=== PATIENT | female | born 1970 | race Caucasian/White ===

== ENCOUNTER 2018-11-07 17:48 | Inpatient (IN) | payer MEDICARE ==
[~2018-11-07] VITALS: Ht 172.7 cm; Wt 75.0 kg
[~2018-11-07 17:48] MED LIST: ALPR.25 PO; AMOCLA875 PO; CITA20; FLUO20 PO; HYDACE5 PO; LITH450ER PO; METPRE4DP PO; NITR100CA PO; OLAN5; Prozac20 MG PO; SYMBYAX; Veetids 500500 MG PO; Zyprexa10 MG PO; [UNRECOGNIZED DRUG - OTHER]; [UNRECOGNIZED DRUG - REMARK]
[2018-11-07 18:17] LABS: Source, Urine Catheter
[2018-11-07 18:22] LABS: BASOPHILS ABSOLUTE AUTO 0.11 K/mm3 (0.00-0.23); BASOPHILS PERCENT AUTO 1 % (0-2); EOSINOPHILS ABSOLUTE AUTO 0.31 K/mm3 (0.00-0.68); EOSINOPHILS PERCENT AUTO 3 % (0-6); Hematocrit 44.7 % (33.0-51.0); Hemoglobin 14.8 g/dL (11.5-16.0); IMMATURE GRAN ABSOLUTE AUTO 0.03 K/mm3 (0.00-0.10); IMMATURE GRAN PERCENT AUTO 0 % (0-1); LYMPHOCYTES ABSOLUTE AUTO 4.53 K/mm3 (0.84-5.20); LYMPHOCYTES PERCENT AUTO 42 % (21-46); MONOCYTES ABSOLUTE AUTO 0.54 K/mm3 (0.16-1.47); MONOCYTES PERCENT AUTO 5 % (4-13); Mean Corpuscular HGB 29.2 pg (26.0-34.0); Mean Corpuscular HGB Conc 33.1 g/dL (31.5-36.5); Mean Corpuscular Volume 88 fL (80-100); Mean Platelet Volume 8.9 fL (9.1-12.4); NEUTROPHILS ABSOLUTE AUTO 5.16 K/mm3 (1.96-9.15); NEUTROPHILS PERCENT AUTO 48 % (41-73); Platelet Count 373 K/mm3 (150-400); RDW Coefficient Variation 13.8 % (11.7-14.2); RDW Standard Deviation 43.8 fL (35.1-46.3); Red Blood Cell Count 5.07 M/mm3 (3.80-5.20); White Blood Cell Count 10.68 K/mm3 (4.00-11.30)
[2018-11-07 18:33] LABS: Appearance, Urine Clear (Clear); Bilirubin, Urine Neg (Neg); Blood, Urine Neg (Neg); Color, Urine Yellow (P-Yellow); Glucose Qualitative, Urine Neg (Neg); Ketones, Urine Neg (Neg); Leukocyte Esterase, Urine Neg (Neg); Nitrite, Urine Neg (Neg); Protein, Urine Neg (Neg); Urobilinogen, Urine NORM (Normal)
[2018-11-07 19:00] LABS: U Amphetamine Screen Not Detected; U Barbituate Screen Not Detected; U Benzodiazapine Screen Not Detected; U Buprenorphine Screen Not Detected; U Cannabinoids Screen DETECTED; U Cocaine Screen Not Detected; U Methadone Screen Not Detected; U Methamphetamine Screen Not Detected; U Opiates Screen Not Detected; U Oxycodone Screen Not Detected; U Phencyclidine Screen Not Detected; U Propoxyphene Screen Not Detected
[2018-11-07 19:01] LABS: Alanine Aminotransfer (ALT/SGP 20 U/L (12-78); Alk Phos 109 U/L (50-136); Anion Gap 13 mmol/L (6-16); Aspartate Aminotrans (AST/SGOT 15 U/L (12-37); Bilirubin, Total 0.3 mg/dL (0.1-1.0); Blood Urea Nitrogen 6 mg/dL (8-24); Bun/Creatinine Ratio 8.4 (12.0-20.0); CO2, Blood 18 mmol/L (21-32); Calcium, Blood 8.5 mg/dL (8.5-10.1); Chloride, Blood 114 mmol/L (98-108); Creatinine, Blood 0.71 mg/dL (0.40-1.00); Ethanol (Alcohol), Blood, Med 253 mg/dL; Free Thyroxine 1.11 ng/dL (0.70-1.60); Globulin, Blood 4.2 g/dL (2.2-4.0); Glomerular Filtration Rate >60 (60-); Glucose, Blood 121 mg/dL (70-99); Potassium, Blood 3.3 mmol/L (3.5-5.5); Salicylate 2.6 mg/dL (2.8-20.0); Sodium, Blood 145 mmol/L (136-145); Total Protein, Blood 8.2 g/dL (6.4-8.2)
[2018-11-07] MEDS ORDERED: ESCI10 PO (19:10)
[2018-11-07 19:21] LABS: Acetaminophen, Random <2.0 ug/mL (10.0-30.0)
[2018-11-08 04:44] LABS: Alanine Aminotransfer (ALT/SGP 22 U/L (12-78); Albumin, Blood 3.2 g/dL (3.4-5.0); Albumin/Globulin Ratio 0.9 (0.8-1.8); Alk Phos 86 U/L (50-136); Anion Gap 8 mmol/L (6-16); Aspartate Aminotrans (AST/SGOT 21 U/L (12-37); Bilirubin, Total 0.6 mg/dL (0.1-1.0); Blood Urea Nitrogen 4 mg/dL (8-24); Bun/Creatinine Ratio 5.8 (12.0-20.0); CO2, Blood 22 mmol/L (21-32); Calcium, Blood 7.3 mg/dL (8.5-10.1); Chloride, Blood 118 mmol/L (98-108); Creatinine, Blood 0.69 mg/dL (0.40-1.00); Globulin, Blood 3.5 g/dL (2.2-4.0); Glomerular Filtration Rate >60 (60-); Glucose, Blood 76 mg/dL (70-99); Potassium, Blood 3.9 mmol/L (3.5-5.5); Sodium, Blood 148 mmol/L (136-145); Total Protein, Blood 6.7 g/dL (6.4-8.2)
[2018-11-09 08:28] LABS: Albumin, Blood 3.1 g/dL (3.4-5.0); Anion Gap 7 mmol/L (6-16); Blood Urea Nitrogen 7 mg/dL (8-24); CO2, Blood 23 mmol/L (21-32); Calcium, Blood 8.2 mg/dL (8.5-10.1); Chloride, Blood 111 mmol/L (98-108); Glomerular Filtration Rate >60 (60-); Glucose, Blood 79 mg/dL (70-99); Magnesium, Blood 2.1 mg/dL (1.6-2.4); Phosphorus, Blood 2.3 mg/dL (2.5-4.9); Potassium, Blood 3.7 mmol/L (3.5-5.5); Sodium, Blood 141 mmol/L (136-145)
[2018-11-10 05:07] LABS: Albumin, Blood 3.2 g/dL (3.4-5.0); Anion Gap 9 mmol/L (6-16); Blood Urea Nitrogen 11 mg/dL (8-24); Bun/Creatinine Ratio 13.9 (12.0-20.0); CO2, Blood 22 mmol/L (21-32); Calcium, Blood 8.5 mg/dL (8.5-10.1); Chloride, Blood 110 mmol/L (98-108); Creatinine, Blood 0.79 mg/dL (0.40-1.00); Glomerular Filtration Rate >60 (60-); Glucose, Blood 90 mg/dL (70-99); Phosphorus, Blood 3.2 mg/dL (2.5-4.9); Potassium, Blood 3.7 mmol/L (3.5-5.5); Sodium, Blood 141 mmol/L (136-145)
== END 2018-11-11 15:15 | DRG 917 ==
LOC: ER 17:48 → ICUE 19:28 → ICUW 19:28 → ICUE 19:54
PROVIDERS: Emergency Medicine; Hospitalist; Internal Medicine
DX: T43.592A Poisoning by other antipsychotics and neuroleptics, intentional self-harm, initial encounter (principal); G92 Toxic encephalopathy; E87.1 Hypo-osmolality and hyponatremia; T51.92XA Toxic effect of unspecified alcohol, intentional self-harm, initial encounter; F31.9 Bipolar disorder, unspecified; T43.222A Poisoning by selective serotonin reuptake inhibitors, intentional self-harm, initial encounter; Y92.009 Unspecified place in unspecified non-institutional (private) residence as the place of occurrence of the external cause; Z87.440 Personal history of urinary (tract) infections; F17.210 Nicotine dependence, cigarettes, uncomplicated; F12.10 Cannabis abuse, uncomplicated; Z63.4 Disappearance and death of family member; R41.0 Disorientation, unspecified; R45.1 Restlessness and agitation; E87.6 Hypokalemia; E83.39 Other disorders of phosphorus metabolism
CPT/HCPCS: 36415; 71045; 80053; 80069; 81003; 81025; 83735; 84439; 84443; 85025; 93005; 93010; 96361; 96374; 96375; 99285-25; G0480; J1650; J2060; J2310; J2405; J3411; J3475; J7030; J7042; J7060

== ENCOUNTER 2021-01-23 23:07 | Inpatient (IN) | payer MEDICARE ==
[~2021-01-23] VITALS: Ht 162.6 cm; Wt 69.3 kg
[~2021-01-23 23:07] MED LIST changes: +ESCI10 PO
[2021-01-23 23:48] LABS: BASOPHILS ABSOLUTE AUTO 0.12 K/mm3 (0.00-0.23); BASOPHILS PERCENT AUTO 2 % (0-2); EOSINOPHILS ABSOLUTE AUTO 0.27 K/mm3 (0.00-0.68); EOSINOPHILS PERCENT AUTO 3 % (0-6); Hematocrit 41.1 % (33.0-51.0); IMMATURE GRAN ABSOLUTE AUTO 0.04 K/mm3 (0.00-0.10); IMMATURE GRAN PERCENT AUTO 1 % (0-1); LYMPHOCYTES ABSOLUTE AUTO 3.03 K/mm3 (0.84-5.20); LYMPHOCYTES PERCENT AUTO 37 % (21-46); MONOCYTES PERCENT AUTO 7 % (4-13); Mean Corpuscular HGB 30.2 pg (26.0-34.0); Mean Corpuscular HGB Conc 34.1 g/dL (31.5-36.5); Mean Corpuscular Volume 89 fL (80-100); Mean Platelet Volume 10.1 fL (9.1-12.4); NEUTROPHILS ABSOLUTE AUTO 4.18 K/mm3 (1.96-9.15); NEUTROPHILS PERCENT AUTO 51 % (41-73); Platelet Count 319 K/mm3 (150-400); RDW Coefficient Variation 14.5 % (11.7-14.2); RDW Standard Deviation 46.2 fL (35.1-46.3); Red Blood Cell Count 4.63 M/mm3 (3.80-5.20); White Blood Cell Count 8.24 K/mm3 (4.00-11.30)
[2021-01-24 00:06] LABS: Source, Urine Catheter
[2021-01-24 00:16] LABS: PO2 Arterial 66.5 mmHg (80-100); pH Blood Arterial 7.35 (7.35-7.45)
[2021-01-24 00:16] LABS: Bilirubin, Urine Neg (Neg); Blood, Urine 3+ (Neg); Glucose Qualitative, Urine Neg (Neg); Ketones, Urine 2+ (Neg); Leukocyte Esterase, Urine Neg (Neg); Nitrite, Urine Neg (Neg); Protein, Urine 2+ (Neg); Specific Gravity, Urine 1.015 (1.003-1.022); Urobilinogen, Urine NORM (Normal); pH, Urine 6.5 (5.0-8.0)
[2021-01-24 00:17] LABS: Appearance, Urine Clear (Clear); Color, Urine Yellow (P-Yellow)
[2021-01-24 00:26] LABS: Bacteria Few /hpf; Squamous Epithelial Cells Few /hpf (Few); Transitional Epithelial Cells Mod /hpf (0-Rare); White Blood Cells, Urine Rare /hpf (0-5)
[2021-01-24 00:34] LABS: U Amphetamine Screen Not Detected; U Barbituate Screen Not Detected; U Benzodiazapine Screen Not Detected; U Buprenorphine Screen Not Detected; U Cannabinoids Screen DETECTED; U Cocaine Screen Not Detected; U Methadone Screen Not Detected; U Methamphetamine Screen Not Detected; U Opiates Screen Not Detected; U Oxycodone Screen Not Detected; U Phencyclidine Screen Not Detected; U Propoxyphene Screen Not Detected
[2021-01-24 00:56] LABS: Acetaminophen, Random <2.0 ug/mL (10.0-30.0); Alanine Aminotransfer (ALT/SGP 27 U/L (12-78); Albumin, Blood 3.5 g/dL (3.4-5.0); Albumin/Globulin Ratio 1.1 (0.8-1.8); Alk Phos 105 U/L (50-136); Anion Gap 15 mmol/L (6-16); Aspartate Aminotrans (AST/SGOT 29 U/L (12-37); Bilirubin, Total 0.5 mg/dL (0.1-1.0); Blood Urea Nitrogen 8 mg/dL (8-24); Bun/Creatinine Ratio 10.2 (12.0-20.0); CO2, Blood 22 mmol/L (21-32); CPK Creatine Kinase 66 U/L (26-193); Calcium, Blood 7.9 mg/dL (8.5-10.1); Chloride, Blood 105 mmol/L (98-108); Creatinine, Blood 0.78 mg/dL (0.40-1.00); Ethanol (Alcohol), Blood, Med 184 mg/dL; Globulin, Blood 3.3 g/dL (2.2-4.0); Glomerular Filtration Rate >60 (60-); Glucose, Blood 114 mg/dL (70-99); Potassium, Blood 2.9 mmol/L (3.5-5.5); Salicylate <1.7 mg/dL (2.8-20.0); Sodium, Blood 142 mmol/L (136-145); Total Protein, Blood 6.8 g/dL (6.4-8.2); Troponin I <0.015 ng/mL (0.000-0.040)
--- NOTE | 2021-01-24 04:42 | NUR ---
DR. VELAZQUEZ UPDATE UPDATED REGARDING LAST FEW BP READINGS LOW WITH SBP 70'S AND DBP 40'S. NEW ORDERS FOR 2L BOLUS OF LR AND THEN TO START LEVOPHED PERIPHERALLY IF PT REMAINS HYPOTENSIVE AFTER FLUID BOLUSES
--- NOTE | 2021-01-24 07:26 | NUR ---
PT TO ICU 10 VIA GURNEY AT 0150 WITH ED RN AND RT. PT INTUBATED AND SEDATED ON VERSED @ 7mg/hr AND FENTANYL @ 75mcg/hr, PT NOT RESPONSIVE TO VERBAL OR PAINFUL STIMULI. VENT SET TO 16/400 PEEP 5 FIO2 35%. MONITOR SHOWS SINUS RHYTHM WITH HR 70'S-80'S, BP INITNALLY STABLE BUT PT BECAME HYPOTENSIVE, VERSED TITRATED TO 5mg/hr AND FENTANYL TO 25mcg/hr RELATED TO BP AND LEVEL OF SEDATION. OG IN PLACE WITH GREEN/BROWN OUTPUT. MITCHELL IN PLACE DRAINING CLEAR YELLOW URINE. HYPOTENSION CONTINUED, CALL PLACED TO DR VELAZQUEZ, NEW ORDER FOR 2L BOLUS LR. KCL DECREASED TO 6meq/hr FOR DURATION OF LR BOLUSES. BP IMPROVED. CALL FROM POISON CONTROL, UPDATED ON PTS VITALS AND LABS, RECOMMENDATION FOR REPEAT EKG AFTER POTASSIUM INFUSING AND LACTIC ACID LAB, SEE NEW ORDERS. REPORT GIVEN TO ZANA CALIX.
--- NOTE | 2021-01-24 07:30 | NUR ---
CARE ASSUMED OF PT AT 0700. PT SEDATED ON VERSED AND FENT FOR MECH VENT. PT WELL SEDATED, TOLERATING VENT, GRIMACES W ORAL CARE. LARGE AMTS OF VOMIT CLEANED FROM PT'S HAIR. MODERATE AMT OF THICK VOMIT SUCTIONED FROM TOP OF ETT BALLOON IN BACK OF THROAT. OG TO LIS, SUCTIONING MODERATE AMT OF BILE/STOMACH CONTENTS.
[2021-01-24 08:09] LABS: Hematocrit 35.3 % (33.0-51.0); Mean Corpuscular HGB 30.4 pg (26.0-34.0); Mean Corpuscular Volume 89 fL (80-100); Platelet Count 256 K/mm3 (150-400); RDW Coefficient Variation 14.3 % (11.7-14.2); RDW Standard Deviation 46.5 fL (35.1-46.3); Red Blood Cell Count 3.95 M/mm3 (3.80-5.20); White Blood Cell Count 10.59 K/mm3 (4.00-11.30)
--- NOTE | 2021-01-24 08:43 | NUR ---
PT INTUBATED, RESTRAINED FOR INTUBATION TO PROTECT LINES, AND SEDATED FOR MECH VENT. NO RISK FOR SELF HARM AT THIS TIME, WILL CONT TO MONITOR
[2021-01-24 10:43] LABS: Alanine Aminotransfer (ALT/SGP 21 U/L (12-78); Albumin, Blood 2.9 g/dL (3.4-5.0); Alk Phos 90 U/L (50-136); Anion Gap 5 mmol/L (6-16); Aspartate Aminotrans (AST/SGOT 23 U/L (12-37); Bilirubin, Total 0.7 mg/dL (0.1-1.0); Blood Urea Nitrogen 6 mg/dL (8-24); Bun/Creatinine Ratio 7.9 (12.0-20.0); CO2, Blood 25 mmol/L (21-32); Calcium, Blood 7.8 mg/dL (8.5-10.1); Chloride, Blood 113 mmol/L (98-108); Creatinine, Blood 0.76 mg/dL (0.40-1.00); Globulin, Blood 2.8 g/dL (2.2-4.0); Glomerular Filtration Rate >60 (60-); Glucose, Blood 77 mg/dL (70-99); Sodium, Blood 143 mmol/L (136-145); Total Protein, Blood 5.7 g/dL (6.4-8.2)
--- NOTE | 2021-01-24 11:00 | NUR ---
EKG REPEATED PER ORDERS; SHOWS NSR/NORMAL EKG. K+ 4.0. DR CAMACHO IN TO SEE PT; SEE NEW ORDERS. VERSED AND FENT GTT TO BE DC'D. PROPOFOL TO BE STARTED PER DR CAMACHO. VERSED OFF FOR 45MIN; PT ABLE TO GRASP HAND TO COMMAND BUT THEN FALLS BACK TO SLEEP, UNABLE TO OPEN EYES TO COMMAND OR ANSWER QUESTIONS VAI NODDING. OGT TO BE ADVANCED, TUBE FEEDS TO BE STARTED.
--- NOTE | 2021-01-24 11:47 | NUR ---
FENTANYL AND VERSED GTT DC'D PER DR CAMACHO. FENT AND VERSED WASTED W LAUREL BOONE RN; SEE EMAR. VBG DRAWN. OGT ADVANCED 10CM.
[2021-01-24 12:13] LABS: Base Excess Venous -0.4 mmol/L; Bicarbonate Venous 23.8 mmol/L (24.0-30.0); PCO2 Venous 46.9 mmHg (38-42); PO2 Venous 104 mmHg (38-42); pH Blood Venous 7.34 (7.34-7.37)
--- NOTE | 2021-01-24 13:48 | NUR ---
PT COUGHING ON VENT, MODERATELY AWAKE, ABLE TO FOLLOW DIRECTIONS. NODS HEAD YES TO PAIN; FENT 50MCG GIVEN
--- NOTE | 2021-01-24 14:39 | NUR ---
VITAL HIGH PROTEIN TUBE FEEDING STARTED AT 25CC/HR; GOAL 50CC/HR.
--- NOTE | 2021-01-24 16:30 | NUR ---
PROPOFOL INCREASED TO 45MCG FOR AGITATION, COUGHING/GAGGING ON VENT. NO OTHER CHANGES
--- NOTE | 2021-01-24 19:20 | NUR ---
ASSESSMENT/ASSUMED CARE PT INTUBATED AND ON [facility] VENT. VENT SETTINGS AC 16 TV 400 PEEP 5 FIO2 30%. LUNGS CLEAR BUT DECREASED IN THE BASES. SUCTIONED MODERATE AMT THICK BLUE SRECTIONS VIA ET TUBE AND LARGE AMT OFF ET TUBE BALLOON. HEART RATE REGULAR. BP STABLE. BT+ HYPOACTIVE. ABD SOFT TO PALPATION. OG WITH TUBE FEED VITAL HP AT 25 ML/HR WITH WATER 30 ML Q4HR. RESIDUAL ZERO. MITCHELL CATH PATENT DRAINING CLEAR YELLOW URINE. IV 18G TO LEFT SHOULDER/CHEST SITE CLEAR, ABLE TO DRAW BLOOD AND FLUSH WITHOUT DIFFICULTY. POWER GLIDE TO RIGHT UPPER ARM WITH PROPOFOL INFUSING AT 55 MCQ/KG/MIN, SITE CLEAR. ABLE TO DRAW BLOOD AND FLUSH WITHOUT DIFFICULTY. PT PULLING AGAINST RESTRAINTS AND GRIMICING WITH ORAL CARE. NOT FOLLOWING INSTRUCTIONS. QUIET WHEN UNDISTURBED.
--- NOTE | 2021-01-24 21:56 | NUR ---
TEMP CALL TO DR CAMACHO REGARDING TEMP 100.2. NO NEW ORDERS AT THIS TIME
--- NOTE | 2021-01-25 02:08 | NUR ---
PAIN PT REPOSITIONED. NODS HEAD "YES" WHEN ASKED ABOUT PAIN. MED WITH FENTANYL 50 MCQ IV.
[2021-01-25 03:23] LABS: Base Excess Venous 1.8 mmol/L; Bicarbonate Venous 25.7 mmol/L (24.0-30.0); PCO2 Venous 38.2 mmHg (38-42); PO2 Venous 46.8 mmHg (38-42); pH Blood Venous 7.44 (7.34-7.37)
[2021-01-25 03:37] LABS: BASOPHILS ABSOLUTE AUTO 0.05 K/mm3 (0.00-0.23); BASOPHILS PERCENT AUTO 1 % (0-2); EOSINOPHILS ABSOLUTE AUTO 0.23 K/mm3 (0.00-0.68); EOSINOPHILS PERCENT AUTO 2 % (0-6); Hemoglobin 12.4 g/dL (11.5-16.0); IMMATURE GRAN ABSOLUTE AUTO 0.04 K/mm3 (0.00-0.10); IMMATURE GRAN PERCENT AUTO 0 % (0-1); LYMPHOCYTES ABSOLUTE AUTO 1.91 K/mm3 (0.84-5.20); LYMPHOCYTES PERCENT AUTO 19 % (21-46); MONOCYTES PERCENT AUTO 7 % (4-13); Mean Corpuscular HGB 30.2 pg (26.0-34.0); Mean Corpuscular HGB Conc 33.5 g/dL (31.5-36.5); Mean Corpuscular Volume 90 fL (80-100); Mean Platelet Volume 9.3 fL (9.1-12.4); NEUTROPHILS ABSOLUTE AUTO 7.12 K/mm3 (1.96-9.15); NEUTROPHILS PERCENT AUTO 71 % (41-73); Platelet Count 249 K/mm3 (150-400); RDW Coefficient Variation 14.8 % (11.7-14.2); RDW Standard Deviation 48.6 fL (35.1-46.3); White Blood Cell Count 10.05 K/mm3 (4.00-11.30)
[2021-01-25 04:01] LABS: Anion Gap 5 mmol/L (6-16); Blood Urea Nitrogen 9 mg/dL (8-24); Bun/Creatinine Ratio 11.6 (12.0-20.0); CO2, Blood 26 mmol/L (21-32); Calcium, Blood 8.3 mg/dL (8.5-10.1); Chloride, Blood 110 mmol/L (98-108); Creatinine, Blood 0.78 mg/dL (0.40-1.00); Glomerular Filtration Rate >60 (60-); Glucose, Blood 101 mg/dL (70-99); Magnesium, Blood 1.8 mg/dL (1.6-2.4); Phosphorus, Blood 2.5 mg/dL (2.5-4.9); Potassium, Blood 3.7 mmol/L (3.5-5.5); Sodium, Blood 141 mmol/L (136-145)
--- NOTE | 2021-01-25 05:29 | NUR ---
SHIFT SUMMARY PT CONT INTUBATED AND ON [facility] VENT. VENT SETTINGS NO CHANGE DURING THE NIGHT. VENT SETTINGS AC 16 TV 400 PEEP 5 FIO2 30%. LUNGS CLEAR BUT DECREASED IN THE BASES. SUCTIONING MODERATE AMT THICK BLUE SERECTIONS VIA ET TUBE. TEMP UP TO 100.4 DURING THE NIGHT, NOW BACK DOWN TO 99.9 WITH REMOVING BLANKETS. SEDATION DECREASED DURING THE NIGHT FROM PROPOFOL AT 55 MCQ/KG/MIN TO 45 MCQ/KG/MIN. PT FOLLOWING SOME SIMPLE INSTRUCTIONS NOW. MED WITH FENTANYL 50 MCQ PRN PAIN. PT NODDING HEAD YES AND NO. TURNED Q2HRS. TUBE FEED INCREASED DURING THE NIGHT NOW AT GOAL RATE OF 50 ML/HR. MIN RESIDUALS. BILAT SOFT WRIST RESTRAINT ON. REPORT TO ON COMING NURSE.
--- NOTE | 2021-01-25 08:00 | NUR ---
CARE ASSUMED, ASSESSMENTS COMPLETED. PT REMAINS INTUBATED AND SEDATED WITH PROPOFOL 45MCG, AC 16, Vt 400, PEEP 5, FIO2 30%. RR 20, SPO2 >90%, PT RESTING QUIETLY WITH NO S/SX DISCOMFORT NOTED. HR 80'S SINUS, BP SLIGHTLY HYPOTENSIVE BUT MAPS REMAIN >65. LS CTA, SMALL AMOUNT OF YELLOW SECRETIONS FROM ETT. UPON ASSESSMENTS, PT OPENS EYES, IS ABLE TO ANSWER SIMPLE YES/NO QUESTIONS AND FOLLOW COMMANDS, [place]. AM CARES COMPLETED.
--- NOTE | 2021-01-25 13:56 | NUR ---
UPDATE DR. PEREZ IN TO ASSESS, NEW ORDERS. PT EXTUBATED AT 1111 TO 2L/NC, SPO2 98%. PT AWAKE, ALERT AND ORIENTED X4, APPROPRIATE AND COOEPRATIVE, DENIES SI. DR. BAKER NOTIFIED, SI RISK CHANGED TO MODERATE. SI PRECAUTIONS IN PLACE, CONTINUOUS VIDEO MONITORING INITIATED. VSS, HR 90'S SINUS, PT DENIES PAIN OR SOB. LS CLEAR, PT EXPECTORATING THICK YELLOW MUCOUS, SELF SUCTIONING. WILL CONTINUE TO MONITOR.
--- NOTE | 2021-01-25 19:27 | NUR ---
END OF SHIFT PT HAD AN UNEVENTFUL AFTERNOON, VSS, NO C/O. CONTINUES TO EXPECTORATE THICK SPUTUM, ABLE TO SELF SUCTION AND CLEAR SECRETIONS. SPO2 MAINTAINING >90% ON RA, LS CTA. HRR, 90'S SINUS. POISON CONTROL STAFF UPDATED, NO NEW RECOMMENDATIONS. PT ATE REGULAR DIET FOR DINNER, TOLERATED WITHOUT DIFFICULTY. REMAINS ORIENTED X4, APPROPRIATE AND COOPERATIVE, DENIES SI, PRECAUTIONS REMAIN IN PLACE. REPORT TO ONCOMING SHIFT.
--- NOTE | 2021-01-25 19:30 | NUR ---
ASSESSMENT/ASSUMED CARE PT AWAKE, A&0. ANSWERING QUESTIONS APPROP. SPEECH CLEAR. C/O HEADACHE 01/[address] PEREZ REGARDING TYLENOL. LUNGS CLEAR ON ROOMAIR. RESP EVEN AND NONLABORED. DENIES SOB. OCC PRODUCTIVE COUGH. ENCOURAGED TO C&DB. HEART RATE REGULAR. BP STABLE. BT+ ABD SOFT AND NONTENDER. DENIES N/V. TAKING PO FLUIDS WITHOUT DIFFICULTY. MITCHELL CATH PATENT DRAINING YELLOW URINE. PT STATES,"CAN I GET THIS CATH OUT". WILL REMOVE CATH SOON POSSIBLE. IV 18G TO LEFT SHOULDER/CHEST SALINE LOCKED, SITE CLEAR. POWER GLIDE TO RIGHT UPPER ARM SITE CLEAR. PT DENIES SI AT THIS TIME. PT STATES,"I WILL TELL YOU IF I FEEL LIKE HARMING MYSELF". ENCOURAGED PT TO TALK WITH FAMILY AND STAFF.
--- NOTE | 2021-01-25 22:10 | NUR ---
MITCHELL CATH REMOVED AND PT MED WITH TYLENOL FOR HEADACHE 3-02/20. PT MOVING AND TURNING SELF IN BED.
[2021-01-26 03:58] LABS: BASOPHILS ABSOLUTE AUTO 0.11 K/mm3 (0.00-0.23); BASOPHILS PERCENT AUTO 1 % (0-2); EOSINOPHILS ABSOLUTE AUTO 0.39 K/mm3 (0.00-0.68); EOSINOPHILS PERCENT AUTO 4 % (0-6); Hematocrit 37.5 % (33.0-51.0); Hemoglobin 12.5 g/dL (11.5-16.0); IMMATURE GRAN ABSOLUTE AUTO 0.05 K/mm3 (0.00-0.10); IMMATURE GRAN PERCENT AUTO 1 % (0-1); LYMPHOCYTES ABSOLUTE AUTO 2.56 K/mm3 (0.84-5.20); LYMPHOCYTES PERCENT AUTO 26 % (21-46); MONOCYTES ABSOLUTE AUTO 0.71 K/mm3 (0.16-1.47); MONOCYTES PERCENT AUTO 7 % (4-13); Mean Corpuscular HGB Conc 33.3 g/dL (31.5-36.5); Mean Corpuscular Volume 90 fL (80-100); Mean Platelet Volume 9.5 fL (9.1-12.4); NEUTROPHILS ABSOLUTE AUTO 6.22 K/mm3 (1.96-9.15); NEUTROPHILS PERCENT AUTO 62 % (41-73); Platelet Count 233 K/mm3 (150-400); RDW Coefficient Variation 14.2 % (11.7-14.2); RDW Standard Deviation 47.2 fL (35.1-46.3); Red Blood Cell Count 4.16 M/mm3 (3.80-5.20); White Blood Cell Count 10.04 K/mm3 (4.00-11.30)
[2021-01-26 04:19] LABS: Anion Gap 6 mmol/L (6-16); Blood Urea Nitrogen 7 mg/dL (8-24); Bun/Creatinine Ratio 11.6 (12.0-20.0); CO2, Blood 25 mmol/L (21-32); Calcium, Blood 8.5 mg/dL (8.5-10.1); Chloride, Blood 112 mmol/L (98-108); Glomerular Filtration Rate >60 (60-); Glucose, Blood 78 mg/dL (70-99); Magnesium, Blood 2.2 mg/dL (1.6-2.4); Phosphorus, Blood 3.6 mg/dL (2.5-4.9); Potassium, Blood 3.8 mmol/L (3.5-5.5); Sodium, Blood 143 mmol/L (136-145)
--- NOTE | 2021-01-26 06:08 | NUR ---
SHIFT SUMMARY PT RESTING QUIETLY. SITTING UP IN BED WATCHING TV. DENIES PAIN AT THIS TIME. PT STATES,'I'M DOING GOOD RIGHT NOW". VSS. DENIES SI AT THIS TIME. PT TURNING AND MOVING SELF IN BED. MITCHELL CATH OUT AND PT VOIDING WITHOUT DIFFICUTLY. UP TO BATHROOM WITH STANDBY ASSIST FOR LINES, GAIT STEADY. REPORT TO ON COMING NURSE.
--- NOTE | 2021-01-26 09:30 | NUR ---
CARE ASSUMED ASSESSMENTS COMPLETED, PT DENIES SI, DENIES C/O AT THIS TIME. LS REMAIN CLEAR, PT CONTINUES TO EXPECTORATE THICK YELLOW SPUTUM. VSS, HR SINUS 70'S, SPO2 96% ON RA. PT TOLERATED BREAKFAST WITHOUT DIFFICULTY, IS NOW SPEAKING WITH MILES REGARDING HER SAFETY PLAN. PT PLEASANT, APPROPRIATE AND COOPERATIVE WITH CARE.
--- NOTE | 2021-01-26 11:33 | NUR ---
Suicide safety plan complete. Pt reports "I'm glad I did not " and "it was stupidity". Anniversary of 14 y/o daughter suicide 15 yearsrs ago is in March, and birthday in February, plus relayed daughter that lives with she and is . Pt felt stressed/overwhelmed. Pt had not been planning OD, but described it as "all of a sudden , just wanted to go to sleep and it would be over".She has been isolating, sleeping 10-12 hours per day, crying, and low energy. Drinks 1/2 - 1 pint of [employer] whiskey per day. Had drank a pint day of OD.Grandfather and father schizophrenic, father by suicide at her age 3. 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 Closes her eyes when she rides in car with her going to grocery shop. Describes it as "overwhelming fear". Reports past attemptes "too numerous to report". All by OD. Last attempt by OD 2 years ago. "[facility]" at [facility] manages her meds. Zyprexa for 20 years and Prozac for 10-12 years. Reports she is BiPolar, but no manic periods for 10 years. Pt OD'd in hr bedroom and was found by daughter. Patient talkative, laughed at herself at times, and engaged well in Safety Planning. Pt identified that she thinks when she ODs, she "gets away for awhile". Identified through brief interventions self help plans of: journaling, when overwhelmed take mini vacation to hotel with , move meds out of bedroom and give to family to keep until she asks. Patient does not have current SI and feels she can safely return home. Wantts a therapist, as last was 4 years ago. RN/Wound Care Technician informed to assist patient to call [facility], as patient trusts [facility], to seek a therapist referral from [facility],and get appt set up prior to DC from [facility]. Mellissa Tomlin M.Ed., [facility]
--- NOTE | 2021-01-26 15:17 | NUR ---
UPDATE PT HAS BEEN RESTING IN BED, VSS, PT REMAINS APPROPRIATE AND COOPERATIVE. DR. SANTOSUFF HERE TO SEE PATIENT. THIS RN ASSISTED PT TO CALL [facility] TO SCHEDULE APPOINTMENT WITH HER MENTAL HEALTH PROVIDER, LUIS FERNANDO. THE OFFICE WAS UNABLE TO SCHEDULE AN APPOINTMENT AT THIS TIME DUE TO AVAILABILITY, OFFICE STAFF TO CONTACT PATIENT TOMORROW TO SCHEDULE. THIS RN LEFT A MESSAGE WITH [facility] OFFICE STAFF THAT PT WOULD LIKE LUIS FERNANDO TO RECOMMEND A THERAPIST THROUGH [facility].
--- NOTE | 2021-01-26 17:11 | NUR ---
DISCHARGE DR. MACEDO IN TO ASSESS PATIENT, HAS DEEMED PATIENT APPROPRIATE FOR DISCHARGE TO HOME WITH FAMILY, OUTPATIENT F/U WITH MENTAL HEALTH. DR. MACEDO CALLED IN RX'S TO [facility], PT AWARE. PT CONTINUES TO DENY SI, VSS. PG DC'D WITH TIP INTACT, PRESSURE DRESSING APPLIED. PT DRESSED, BELONGINGS RETURNED INCLUDING 2 RINGS AND CLOTHING. DC INSTRUCTIONS GIVEN, PT AND VERBALIZE UNDERSTANDING. TO DRIVE PT HOME, PT AMBULATED TO CAR, REFUSED NEED FOR WC, GAIT STEADY. ABX RX FAXED TO [facility] [place], MESSAGE LEFT ON PT'S HOME PHONE INFORMING HER OF ADDITIONAL MEDICATION.
== END 2021-01-26 17:05 | disposition home or self-care (01) | DRG 917 ==
LOC: ER 23:07 → ICUW 01-24 01:16
PROVIDERS: Emergency Medicine; Internal Medicine Critical Care Medicine; Internal Medicine Pulmonary Disease; ADMIT Internal Medicine
PROC: 5A1935Z Respiratory Ventilation, Less than 24 Consecutive Hours (ICD-10-PCS; principal; 2021-01-23)
PROC: 0BH17EZ Insertion of Endotracheal Airway into Trachea, Via Natural or Artificial Opening (ICD-10-PCS; 2021-01-23)
DX: T43.222A Poisoning by selective serotonin reuptake inhibitors, intentional self-harm, initial encounter (principal); J96.00 Acute respiratory failure, unspecified whether with hypoxia or hypercapnia; T43.592A Poisoning by other antipsychotics and neuroleptics, intentional self-harm, initial encounter; F32.9 Major depressive disorder, single episode, unspecified; I10 Essential (primary) hypertension; E87.6 Hypokalemia; F17.210 Nicotine dependence, cigarettes, uncomplicated
CPT/HCPCS: 31500; 36600; 70450; 71045; 80048; 80053; 81001; 82550; 82803; 82947; 83605; 83735; 84100; 84484; 84703; 85025; 85027; 87070; 87147; 87205; 93005; 93010; 94002; 94003; 96361; 96365; 96374; 96375; 99285-25; A9270; C1751; G0480; J1650; J2250; J2704; J3010; J3411; J3480; J7030; J7050; J7120

== ENCOUNTER 2025-07-22 19:58 | Observation (INO) | payer MEDICARE ==
[~2025-07-22] VITALS: Ht 160 cm; Wt 65.8 kg
[2025-07-22] MEDS ORDERED: LORazepam 2 MG/ML 1ML Injection ONE (20:39)
[2025-07-22] MEDS ORDERED: Haloperidol Lactate Inj. 5 MG/ML Injection ONE (20:39)
[2025-07-22] MEDS ORDERED: LORazepam 2 MG/ML 1ML Injection IM ONE (20:45)
[2025-07-22] MEDS ORDERED: Haloperidol Lactate Inj. 5 MG/ML Injection IM ONE (20:45)
[2025-07-22 21:05] LABS: BASOPHILS ABSOLUTE AUTO 0.16 K/mm3 (0.00-0.23); BASOPHILS PERCENT AUTO 1 % (0-2); EOSINOPHILS ABSOLUTE AUTO 0.39 K/mm3 (0.00-0.68); EOSINOPHILS PERCENT AUTO 3 % (0-6); Hematocrit 40.2 % (33.0-51.0); Hemoglobin 13.7 g/dL (11.5-16.0); IMMATURE GRAN ABSOLUTE AUTO 0.04 K/mm3 (0.00-0.10); IMMATURE GRAN PERCENT AUTO 0 % (0-1); LYMPHOCYTES ABSOLUTE AUTO 4.89 K/mm3 (0.84-5.20); LYMPHOCYTES PERCENT AUTO 42 % (21-46); MONOCYTES ABSOLUTE AUTO 0.96 K/mm3 (0.16-1.47); MONOCYTES PERCENT AUTO 8 % (4-13); Mean Corpuscular HGB Conc 34.1 g/dL (31.5-36.5); Mean Corpuscular Volume 85 fL (80-100); NEUTROPHILS ABSOLUTE AUTO 5.10 K/mm3 (1.96-9.15); NEUTROPHILS PERCENT AUTO 44 % (41-73); NRBC ABSOLUTE 0.00 K/mm3 (0.00-0.02); NRBC Auto 0.0 /100 WBC (0.0-0.2); Platelet Count 374 K/mm3 (150-400); RDW Coefficient Variation 13.4 % (11.7-14.2); RDW Standard Deviation 41.9 fL (35.1-46.3)
[2025-07-22] MEDS ORDERED: DiphenhydrAMINE HCl 50 MG/ML 1ML Vial IM ONE (21:05)
[2025-07-22 21:45] LABS: Salicylate <1.7 mg/dL (2.8-20.0)
[2025-07-22] MEDS ORDERED: Ziprasidone Mesylate 20 MG / Vial IM ONE (22:00)
[2025-07-22 22:07] LABS: Alanine Aminotransfer (ALT/SGP 21 U/L (12-78); Albumin, Blood 3.7 g/dL (3.4-5.0); Albumin/Globulin Ratio 1.0 (0.8-1.8); Anion Gap 11 mmol/L (3-11); Aspartate Aminotrans (AST/SGOT 25 U/L (12-37); Bilirubin, Total 0.4 mg/dL (0.1-1.0); Blood Urea Nitrogen 11 mg/dL (8-24); CO2, Blood 25 mmol/L (21-32); Calcium, Blood 8.8 mg/dL (8.5-10.1); Chloride, Blood 109 mmol/L (98-108); Creatinine, Blood 0.79 mg/dL (0.40-1.00); Ethanol (Alcohol), Blood, Med 412 mg/dL; Globulin, Blood 3.8 g/dL (2.2-4.0); Glucose, Blood 104 mg/dL (70-99); Potassium, Blood 3.4 mmol/L (3.5-5.5); Sodium, Blood 142 mmol/L (136-145); Total Protein, Blood 7.5 g/dL (6.4-8.2)
[2025-07-22 22:08] LABS: Acetaminophen, Random <2.0 ug/mL (10.0-30.0)
[2025-07-23 02:42] LABS: Source, Urine Clean Catch
[2025-07-23 02:52] LABS: Bilirubin, Urine Neg (Neg); Color, Urine Yellow (P-Yellow); Glucose Qualitative, Urine Neg (Neg); Ketones, Urine Neg (Neg); Leukocyte Esterase, Urine 2+ (Neg); Protein, Urine 1+ (Neg); Specific Gravity, Urine 1.015 (1.003-1.022); Urobilinogen, Urine NORM (Normal)
[2025-07-23 02:59] LABS: U Amphetamine Screen Not Detected; U Barbituate Screen Not Detected; U Benzodiazapine Screen DETECTED; U Buprenorphine Screen Not Detected; U Cannabinoids Screen DETECTED; U Cocaine Screen Not Detected; U Methadone Screen Not Detected; U Methamphetamine Screen Not Detected; U Opiates Screen Not Detected; U Oxycodone Screen Not Detected; U Phencyclidine Screen Not Detected
[2025-07-23 09:12] VITALS: BP 127/85
== END 2025-07-23 13:28 | disposition home or self-care (01) ==
LOC: ER 19:58 → EOR 19:59
PROVIDERS: Student in an Organized Health Care Education/Training Program; ADMIT Student in an Organized Health Care Education/Training Program
DX: F31.9 Bipolar disorder, unspecified (principal); R45.851 Suicidal ideations; R45.1 Restlessness and agitation; F10.129 Alcohol abuse with intoxication, unspecified; N30.00 Acute cystitis without hematuria; F17.200 Nicotine dependence, unspecified, uncomplicated
CPT/HCPCS: 73030; 73120; 80053; 80320; 81001; 81025; 85025; 87086; 96372; 99285; A9270; G0378; G0480; J1200; J1630; J2060